=== PATIENT | female | born 1955 | race Caucasian/White ===

== ENCOUNTER 2021-05-27 01:42 | Outpatient (CLI) | payer BC, SELFPAY ==
[2021-05-27 15:49] LABS: Abs Immature Grans 0.02 10^3/uL (0.0-0.06); Absolute Basophil Count 0.03 10^3/uL (0.0-0.2); Absolute Eosinophil Count 0.18 10^3/uL (0.0-0.7); Absolute Lymphocyte Count 2.49 10^3/uL (1.2-3.4); Absolute Monocyte Count 0.43 10^3/uL (0.1-0.8); Absolute Neutrophil Count 3.04 10^3/uL (1.2-6.7); Basophils % 0.5; Eosinophils % 2.9; HCT 40.2 % (36.0-46.0); HGB 13.1 g/dL (11.2-15.7); Immature Grans % 0.3; Lymphocytes % 40.2; MCH 31.4 pg (27.0-33.0); MCHC 32.6 % (32.0-36.0); MCV 96.4 fL (80-95); MPV 9.5 fL (8.0-11.0); Monocytes % 6.9; Neutrophils % 49.2; Nucleated RBC 0 %; Platelet Count 243 10^3/uL (130-400); RBC 4.17 10^6/uL (3.93-5.22); RDW 11.9 % (11.7-14.6); RDW-SD 42.4 fL; WBC 6.19 10^3/uL (4.4-10.8)
[2021-05-27 17:11] LABS: ALT 25 U/L (14-59); AST 18 U/L (15-37); Alkaline Phosphatase 57 U/L (46-116); Anion Gap 8.9 mmol/L (3-11); BUN 19 mg/dL (7-18); Bilirubin, Total 0.3 mg/dL (0.2-1.0); CO2 29.1 mmol/L (21.0-32.0); CREATININE 0.9 mg/dL (0.55-1.02); Calcium 8.7 mg/dL (8.5-10.1); Chloride 104 mmol/L (98-107); Glucose 97 mg/dL (74-106); Potassium 3.9 mmol/L (3.5-5.1); Sodium 142 mmol/L (136-145); Total Protein 6.8 g/dL (6.4-8.2)
[2021-05-27 22:38] LABS: CEA 0.9 ng/mL (See Note)
[2021-05-29 17:54] LABS: DPYD Phenotype Normal metabolizer
== END 2021-05-27 01:43 | disposition home or self-care (01) ==
LOC: LBO 01:42
PROVIDERS: PCP Physician Assistant Medical; Visit Provider Internal Medicine Hematology & Oncology
DX: C18.7 Malignant neoplasm of sigmoid colon (principal)
CPT/HCPCS: 36415; 80053; 81232; 82378; 85025

== ENCOUNTER 2021-06-07 01:46 | Outpatient (RCR) | payer BC, SELFPAY ==
[2021-06-07] MEDS: Normal Saline Flush 10 ML SYR IVP (09:54)
[2021-06-07 10:00] LABS: Abs Immature Grans 0.01 10^3/uL (0.0-0.06); Absolute Basophil Count 0.04 10^3/uL (0.0-0.2); Absolute Eosinophil Count 0.12 10^3/uL (0.0-0.7); Absolute Lymphocyte Count 2.04 10^3/uL (1.2-3.4); Absolute Monocyte Count 0.57 10^3/uL (0.1-0.8); Basophils % 0.7; Eosinophils % 2.1; HCT 38.5 % (36.0-46.0); HGB 12.8 g/dL (11.2-15.7); Immature Grans % 0.2; Lymphocytes % 35.3; MCH 32.1 pg (27.0-33.0); MCHC 33.2 % (32.0-36.0); MCV 96.5 fL (80-95); MPV 9.5 fL (8.0-11.0); Monocytes % 9.9; Neutrophils % 51.8; Nucleated RBC 0 %; Platelet Count 228 10^3/uL (130-400); RBC 3.99 10^6/uL (3.93-5.22); RDW 12.1 % (11.7-14.6); RDW-SD 43.1 fL; WBC 5.78 10^3/uL (4.4-10.8)
[2021-06-07 10:11] LABS: ALT 40 U/L (14-59); AST 30 U/L (15-37); Albumin 3.7 g/dL (3.4-5.0); Alkaline Phosphatase 55 U/L (46-116); Anion Gap 7.8 mmol/L (3-11); BUN 16 mg/dL (7-18); Bilirubin, Total 0.4 mg/dL (0.2-1.0); CO2 26.2 mmol/L (21.0-32.0); CREATININE 0.8 mg/dL (0.55-1.02); Chloride 107 mmol/L (98-107); Glucose 99 mg/dL (74-106); Potassium 4.1 mmol/L (3.5-5.1); Sodium 141 mmol/L (136-145); Total Protein 6.9 g/dL (6.4-8.2)
== END 2021-06-24 23:59 | disposition home or self-care (01) ==
LOC: INF 01:46
PROVIDERS: PCP Physician Assistant Medical; Visit Provider Internal Medicine Hematology & Oncology
DX: C18.7 Malignant neoplasm of sigmoid colon (principal); Z45.2 Encounter for adjustment and management of vascular access device
CPT/HCPCS: 36591; 80053; 85025